=== PATIENT | male | born 1975 | race Hispanic/Latino ===

== ENCOUNTER 2017-12-17 00:12 | Emergency (ER) | payer OTHER ==
[2017-12-17] MEDS ORDERED: Lactated Ringer's 1,000 ML IV SCH (01:15)
[2017-12-17] MEDS ORDERED: Lactated Ringer's 1,000 ML IV STA (01:21)
--- NOTE | 2017-12-17 01:43 | ED PDOC ---
HPI:Nausea, Vomiting, Diarrhea Time Seen by Provider: 12/17/17 00:49 Chief Complaint (Nursing): GI Problem Chief Complaint (Provider): Nausea and Vomiting History Per: Patient History/Exam Limitations: no limitations Onset/Duration Of Symptoms: Hrs (5) Current Symptoms Are (Timing): Still Present Quality Of Discomfort: Cramping Associated Symptoms: Fever, Chills, Nausea, Vomiting, Diarrhea Last Bowel Movement: Today Additional History Per: Patient Additional Complaint(s): 42 y/o male here this evening complaining of acute onset abdominal cramping, nausea, vomiting, and diarrhea for the last 5 hours. He complains of 5 -6 episodes of nonbloody and nonbillious emesis, as well as 1 episode of nonbloody diarrhea. Patient also complains of associated subjective fever and chills. Denies any other complaint at this time. Past Medical History Vital Signs: Last Vital Signs Temp 99.5 F 12/17/17 00:27 Pulse 103 H 12/17/17 00:27 Resp 18 12/17/17 00:27 BP 119/78 12/17/17 00:27 Pulse Ox 94 L 12/17/17 00:27 - Medical History PMH: No Chronic Diseases - Surgical History Surgical History: No Surg Hx - Family History Family History: States: No Known Family Hx - Social History Current smoker - smoking cessation education provided: No Alcohol: None Drugs: Denies - Home Medications Home Medications: Ambulatory Orders Medication Instructions Recorded Dicyclomine [Bentyl] 20 mg PO Q12 PRN #20 tab 12/17/17 Ondansetron ODT [Zofran ODT] 4 mg PO Q6 PRN #12 odt 12/17/17 - Allergies Allergies/Adverse Reactions: Allergies Allergy/AdvReac Type Severity Reaction Status Date / Time No Known Allergies Allergy Verified 12/17/17 00:27 Review of Systems ROS Statement: Except As Marked, All Systems Reviewed And Found Negative Constitutional: Positive for: Fever, Chills Gastrointestinal: Positive for: Nausea, Vomiting, Abdominal Pain, Diarrhea Physical Exam - Reviewed Nursing Documentation Reviewed: Yes Vital Signs Reviewed: Yes - Physical Exam Appears: Positive for: Well, Non-toxic, Uncomfortable Head Exam: Positive for: ATRAUMATIC, NORMAL INSPECTION, NORMOCEPHALIC Skin: Positive for: Normal Color, Warm, DRY Eye Exam: Positive for: EOMI, Normal appearance, PERRL ENT: Negative for: Normal ENT Inspection (tacky mucus membranes ) Neck: Positive for: Normal, Painless ROM Cardiovascular/Chest: Positive for: Tachycardia. Negative for: Regular Rate, Rhythm, Irregularly Irregular Respiratory: Positive for: CNT, Normal Breath Sounds Gastrointestinal/Abdominal: Positive for: Normal Exam, Bowel Sounds, Soft Back: Positive for: Normal Inspection Extremity: Positive for: Normal ROM Neurologic/Psych: Positive for: Alert, Oriented - Laboratory Results Result Diagrams: 12/17/17 02:14 12/17/17 02:14 - ECG O2 Sat by Pulse Oximetry: 94 (RA) Pulse Ox Interpretation: Abnormal Medical Decision Making Medical Decision Making: Impression: Acute onset nausea, vomiting, and diarrhea. Plan: - IVF - Zofran - Bentyl - Labs Labs reviewed and showed no clinically significant findings. On reevaluation the patient reports improvement. He is medically stable and will be discharged home. All questions answered. Scribe Attestation Documented by Aundrea Tesfaye acting as a scribe for Yaakov Cummings MD. Provider Attestation All medical record entries made by the Scribe were at my direction and personally dictated by me. I have reviewed the chart and agree that the record accurately reflects my personal performance of the history, physical exam, medical decision making, and the department course for this patient. I have also personally directed, reviewed, and agree with the discharge instructions and disposition. Disposition - Clinical Impression Clinical Impression: Gastroenteritis - Patient ED Disposition Is Patient to be Admitted: No Doctor Will See Patient In The: Office Counseled Patient/Family Regarding: Diagnosis, Need For Followup, Rx Given - Disposition Disposition: Routine/Home Disposition Time: 04:02 Condition: STABLE Prescriptions: Dicyclomine [Bentyl] 20 mg PO Q12 PRN #20 tab PRN Reason: abdominal pain/diarrhea Ondansetron ODT [Zofran ODT] 4 mg PO Q6 PRN #12 odt PRN Reason: Nausea/Vomiting Instructions: Viral Gastroenteritis Forms: [employer] ([place]), [facility] ED School/Work Excuse
[2017-12-17 02:16] LABS: BASO % 0.3 % (0.0-2.0); EOS # 0.1 K/uL (0.0-0.7); EOS % 0.8 % (0.0-4.0); HEMOGLOBIN 16.5 g/dL (12.0-18.0); LYMPH # 0.2 K/uL (1.0-4.3); LYMPH % 2.3 % (20.0-40.0); MEAN CELL VOLUME 98.2 fl (80.0-94.0); MEAN CORPUSCULAR HEMOGLOBIN 32.9 pg (27.0-31.0); MEAN CORPUSCULAR HGB CONC 33.5 g/dL (33.0-37.0); MEAN PLATELET VOLUME 8.5 fl (7.2-11.7); MONO # 0.5 K/uL (0.0-0.8); MONO % 4.7 % (0.0-10.0); NEUT # 9.8 K/uL (1.8-7.0); NEUT % 91.9 % (50.0-75.0); PLATELET COUNT 201 K/uL (130-400); RBC 5.03 Mil/uL (4.40-5.90); RED CELL DISTRIBUTION WIDTH 12.8 % (11.5-14.5); WHITE BLOOD COUNT 10.7 K/uL (4.8-10.8)
[2017-12-17 02:34] LABS: ALB/GLOB RATIO 1.5 (1.0-2.1); ALBUMIN 4.8 g/dL (3.5-5.0); ALT/SGPT 28 U/L (21-72); AST/SGOT 32 U/L (17-59); BLOOD UREA NITROGEN 23 mg/dl (9-20); CALCIUM 9.1 mg/dL (8.4-10.2); GFR AFRICAN-AMERICAN > 60; GFR NON-AFRICAN AMERICAN > 60; LIPASE 176 U/L (23-300)
[2017-12-17 02:58] VITALS: TEMP 100.4
[2017-12-17 02:58] LABS: URINE BILIRUBIN NEGATIVE (NEGATIVE); URINE BLOOD NEGATIVE (NEGATIVE); URINE CLARITY SLIGHTY-CLOUDY (Clear); URINE COLOR YELLOW (YELLOW); URINE GLUCOSE (UA) NEG (Normal); URINE LEUKOCYTE ESTERASE NEG Leu/uL (Negative); URINE NITRATE NEGATIVE (NEGATIVE); URINE PROTEIN 30 mg/dL (NEGATIVE); URINE UROBILINOGEN 0.2-1.0 mg/dL (0.2-1.0)
[2017-12-17 03:41] LABS: TOTAL CELLS COUNTED 100
[2017-12-17 03:42] LABS: PLATELET ESTIMATE NORMAL (NORMAL)
[2017-12-17 03:54] LABS: BANDS 3 % (0-2); LYMPHOCYTE 4 % (20-50); MONOCYTE 5 % (0-10); NEUTROPHIL 86 % (42-75); REACTIVE LYMPHOCYTES 2 % (0-0)
[2017-12-17 04:29] VITALS: BP 124/77; PULSE 81; RESP 17
[2017-12-20 23:05] VITALS: O2SAT 94
== END 2017-12-17 04:26 | disposition home or self-care (01) ==
LOC: H.ER 00:12
DX: K52.9 Noninfective gastroenteritis and colitis, unspecified (principal)
CPT/HCPCS: 80053; 81003; 83605; 83690; 85025; 87040; 87804; 96360; 99284; J2405; J7120